=== PATIENT | female | born 1950 | race Caucasian/White ===

== ENCOUNTER 2018-03-14 12:46 | Emergency (ER) | payer MEDICARE ==
[2018-03-14 12:53] VITALS: BP 140/78
--- OUTSIDE RECORDS SUMMARY | 2018-03-14 12:53 | XMS REPORT ---
:1950 External Reference #:[id number] Author Organization [facility] Address [address] [place] [address] [place] [address] Phone [phone] Care Team Providers Name Role Phone Amena Roque MD Care Team Information Publication Designer Unavailable Michael Kebede MD Primary Care Physician Unavailable Payers Type Date Identification Numbers Payment Provider Subscriber Medicare Primary Policy Number: [id number] Medicare Rosi Medina PayID: [id number] [address] [place] [address] [facility] Part B Policy Number: [id number] [facility] Rosi Medina PayID: [id number] [address] [place] [address] Problems Date Description Provider Status Onset: 11/05/2014 Trigeminal neuralgia Sera Hope M.D. Active Note: right: Open surgery Dr. Rothman 10/22/14 Family History Date Family Member(s) Problem(s) Comments General Cancer General Sons with raynaud's General Brain Cancer General Cervical Cancer Father Esophagus Cancer Social History Type Date Description Comments ETOH Use Denies alcohol use Smoking Patient is a former smoker Exercise Type/Frequency Exercises regularly Allergies, Adverse Reactions, Alerts Date Description Reaction Status Severity Comments 05/11/2012 Sulfa hives, disorientation active 05/11/2012 Erythromycin GI disturbance active 05/11/2012 Ibuprofen active Severe Digestive disturbance 05/11/2012 Zithromax rash active 11/05/2014 TeQuin active Medications Medication Date Status Form Strength Qnty SIG Indications Ordering Provider Citalopram / Active Tablets 40mg 30tabs 1 po qd Unknown Hydrobromide 0000 Metoclopramide / Active Tablets 5mg 120tab 2 tabs po Unknown HCL 0000 s q evening Multivitamins 00/ Active Capsules 30caps 1 capsule Unknown 0000 jeromy;y Vitamin D 3 / Active 1,000mg 1 po daily Unknown 0000 [place] 3 / Active 1 po daily Unknown 0000 Atorvastatin / Active Tablets 20mg take 1 Unknown Calcium 0000 tablet at bedtime Melatonin / Active Capsules 3mg 1 tab by Unknown 0000 mouth every night at bedtime Aspirin / Active Tablets 325mg 1 by mouth Unknown 0000 every day Hydrocodone-Acet / Active Tablets 5-325mg 1-2 tabs Unknown aminophen 0000 by mouth every 4- 6 hours as needed pain Nadolol / Active Tablets 20mg Take 1 Unknown 0000 Tablet By Mouth Every Day Citalopram / Active Tablets 40mg Take 1 Unknown Hydrobromide 0000 Tablet By Mouth Every Day Famotidine / Active Tablets 40mg 1 by mouth Unknown 0000 every day Prednisone 06/18/ Hx Tablets 20mg 25tabs 60mg PO Cee 2013 - qam x 3 Gnadt, [employer]NAGER [employer] 11/04/ , then 2014 40mg PO qam x 3 days, then 20mg PO qam x 3 days, then 10mg PO qam x 3 days, then stop. Tegretol-XR 12/20/ Hx Tablets ER 200mg 120tab take 2 by Sera 2012 - HR s mouth Herminia, 11/24/ twice a M.D. 2016 day Tegretol-XR 12/19/ Hx Tablets ER 100mg 240tab take 4 po Sera 2012 - HR s bid Herminia, 12/20/ M.D. 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 2013 day Mysoline / Hx Tablets 50mg 540tab 1/2 to 1 Sera 0000 - s tab qpm Herminia, 10/04/ M.D. 2013 Metoprolol / Hx Tablets 50mg 60tabs 1 po qd Unknown Tartrate 0000 - 2016 Simvastatin 00/00/ Hx Tablets 40mg 90tabs 1 po qhs Unknown 0000 - 2014 Hydrocodone/Acet /00/ Hx Tablets 5-325mg 30tabs 1 to 2 Unknown aminophen - tabs po 11/04/ qhs prn 2014 Benadryl Allergy /00/ Hx Capsules 25mg 30caps 1 po qhs Unknown - 2014 Nexium /00/ Hx Capsules 40mg 30caps 1 po qd Unknown 0000 - DR 2016 Co Q10 00/ Hx Capsules 200mg 30caps 1 po qd Unknown - 2013 Aspirin /00/ Hx Tablets 325mg 1 po qd Unknown - 2014 Topiramate 00/ Hx Tablets 25mg 60tabs 1 by mouth Cee 0000 - twice a Gnadt, MANAGER [employer] in 2016 addition to 100mg tabs Keflex /00/ Hx Capsules 2 days Unknown 0000 - left 2016 Propranolol HCL 00/ Hx Tablets 20mg 1 by mouth Unknown 0000 - twice a 2017 Omeprazole 00/ Hx Capsules 20mg 1 by mouth Unknown 0000 - DR every day 2017 Vital Signs Date Vital Result Comment 02/25/2018 Height 62 inches 5'2" Weight 188.50 lb Heart Rate 57 /min BP Systolic Sitting 110 mmHg BP Diastolic Sitting 68 mmHg Pain Level 8 O2 % BldC Oximetry 96 % BMI (Body Mass Index) 34.5 kg/m2 12/23/2016 Height 62 inches 5'2" Weight 197.00 lb Heart Rate 80 /min BP Systolic Sitting 110 mmHg BP Diastolic Sitting 70 mmHg Respiratory Rate 14 /min Pain Level 7 BMI (Body Mass Index) 36.0 kg/m2 11/24/2016 Height 62 inches 5'2" Weight 201.00 lb Heart Rate 78 /min BP Systolic Sitting 110 mmHg BP Diastolic Sitting 64 mmHg Respiratory Rate 14 /min Pain Level 6 BMI (Body Mass Index) 36.8 kg/m2 11/05/2014 Height 62 inches 5'2" Weight 175.00 lb Heart Rate 72 /min BP Systolic Sitting 114 mmHg BP Diastolic Sitting 70 mmHg Respiratory Rate 16 /min BMI (Body Mass Index) 32.0 kg/m2 04/30/2014 Height 62 inches 5'2" Weight 191.50 lb Heart Rate 72 /min BP Systolic Sitting 110 mmHg BP Diastolic Sitting 76 mmHg Respiratory Rate 16 /min BMI (Body Mass Index) 35.0 kg/m2 04/09/2014 Height 62 inches 5'2" Weight 192.12 lb Heart Rate 70 /min BP Systolic Sitting 102 mmHg BP Diastolic Sitting 70 mmHg Respiratory Rate 16 /min BMI (Body Mass Index) 35.1 kg/m2 10/04/2013 Heart Rate 60 /min BP Systolic Sitting 106 mmHg BP Diastolic Sitting 70 mmHg Respiratory Rate 16 /min 01/04/2013 Heart Rate 60 /min BP Systolic Sitting 114 mmHg BP Diastolic Sitting 68 mmHg Respiratory Rate 12 /min 05/11/2012 Weight 185.00 lb Heart Rate 72 /min BP Systolic 130 mmHg BP Diastolic 78 mmHg Respiratory Rate 14 /min Results Test Date Test Result H/L Range Note Laboratory test finding 11/25/2016 Uric Acid 6.5 mg/dL 2.3-6.6 1 Anca AB Ser If 11/25/2016 C-Anca Negative Negative P-Anca Negative Negative 2 Laboratory test finding 11/25/2016 Creatine Kinase(CK) 51 U/L 10-223 3 Laboratory test finding 11/25/2016 Erythrocyte Sed Rate 13 mm/Hr 0-40 4 C Reactive Protein 5.57 mg/L High < 5.00 5 Connective Tissue Panel 11/25/2016 Anti-Nuclear Antibody 0.3 U 6 Cyclic Citrullinated Peptide <15.6 U 7 Interpretation See Comment 8 Laboratory test finding 11/25/2016 Rheumatoid Factor <15 IU/mL <15 9 Hla B27 11/25/2016 Hla B27 Negative 10 Hla B27 Interp See Comment 11 Laboratory test finding 11/25/2016 TSH (Thyroid Stim 1.38 mcIU/mL 0.34- 5.60 12 Horm) Hepatitis Acute Panel 11/25/2016 Hepatitis B Surface Nonreactive Nonreactive Antigen Hepatitis B Core IgM Nonreactive Nonreactive Hepatitis A AB IgM Nonreactive Nonreactive Hepatitis C Antibody Nonreactive Nonreactive Laboratory test finding 11/25/2016 Vitamin D, 1,25 Dihydroxy 67 pg/mL 18- 78 13 Angiotensin Converting Enzyme 22 U/L 8 - 53 14 CBC Auto Diff 11/25/2016 White Blood Count 5.6 10^3/uL 3.5-10.8 Red Blood Count 4.68 10^6/uL 4.0-5.4 Hemoglobin 14.0 g/dL 12.0-16.0 Hematocrit 42 % 35-47 Mean Corpuscular Volume 90 fL 80-97 Mean Corpuscular Hemoglobin 30 pg 27-31 Mean Corpuscular HGB Conc 33 g/dL 31-36 Red Cell Distribution Width 14 % 10.5-15 Platelet Count 216 10^3/uL 150-450 Mean Platelet Volume 9 um3 7.4-10.4 Abs Neutrophils 2.7 10^3/uL 1.5-7.7 Abs Lymphocytes 1.9 10^3/uL 1.0-4.8 Abs Monocytes 0.7 10^3/uL 0-0.8 Abs Eosinophils 0.3 10^3/uL 0-0.6 Abs Basophils 0 10^3/uL 0-0.2 Abs Nucleated RBC 0 10^3/uL Granulocyte % 48.8 % 38-83 Lymphocyte % 34.3 % 25-47 Monocyte % 11.7 % High 1-9 Eosinophil % 4.5 % 0-6 Basophil % 0.7 % 0-2 Nucleated Red Blood Cells % 0.1 Comp Metabolic Panel 11/25/2016 Sodium 137 mmol/L 133-145 Potassium 4.5 mmol/L 3.5-5.0 Chloride 106 mmol/L 101-111 Co2 Carbon Dioxide 28 mmol/L 22-32 Anion Gap 3 mmol/L 2-11 Glucose 124 mg/dL High 70-100 Blood Urea Nitrogen 13 mg/dL 6-24 Creatinine 0.75 mg/dL 0.51-0.95 BUN/Creatinine Ratio 17.3 8-20 Calcium 9.1 mg/dL 8.6-10.3 Total Protein 6.1 g/dL Low 6.4-8.9 Albumin 3.6 g/dL 3.2-5.2 Globulin 2.5 g/dL 2-4 Albumin/Globulin Ratio 1.4 1-3 Total Bilirubin 0.40 mg/dL 0.2-1.0 Alkaline Phosphatase 50 U/L 34-104 Alt 33 U/L 7-52 Ast 32 U/L 13-39 Egfr Non- 77.1 >60 Egfr 99.1 >60 15 Laboratory test finding 04/25/2014 Carbamazepine 9.5 g/mL 4.0-12.0 Comp Metabolic Panel 04/25/2014 Sodium 138 mmol/L 133-145 Potassium 4.0 mmol/L 3.7-5.6 Chloride 108 mmol/L 101-111 Co2 Carbon Dioxide 25 mmol/L 22-32 Anion Gap 5 mmol/L 2-11 Glucose 101 mg/dL High 70-100 Blood Urea Nitrogen 14 mg/dL 6-24 Creatinine 0.77 mg/dL 0.51-0.95 BUN/Creatinine Ratio 18.2 8-20 Calcium 8.9 mg/dL 8.6-10.3 Total Protein 6.4 g/dL 6.4-8.9 Albumin 4.0 g/dL 3.2-5.2 Globulin 2.4 g/dL 2-4 Albumin/Globulin Ratio 1.7 1-3 Total Bilirubin 0.30 mg/dL 0.2-1.0 Alkaline Phosphatase 56 U/L 34-104 Alt 16 U/L 7-52 Ast 16 U/L 13-39 Egfr Non- 75.5 >60 Egfr 97.1 >60 16 CBC Auto Diff 04/10/2014 White Blood Count 6.0 10^3/uL 4.8-10.8 17 Red Blood Count 4.49 10^6/uL 4.0-5.4 17 Hemoglobin 14.5 g/dL 12.0-16.0 17 Hematocrit 42 % 35-47 17 Mean Corpuscular Volume 94 fL 80-97 17 Mean Corpuscular Hemoglobin 32 pg High 27-31 17 Mean Corpuscular HGB Conc 34 g/dL 31-36 17 Red Cell Distribution Width 13 % 10.5-15 17 Platelet Count 258 10^3/uL 150-450 17 Mean Platelet Volume 8 um3 7.4-10.4 17 Abs Neutrophils 3.5 10^3/uL 1.5-7.7 17 Abs Lymphocytes 1.8 10^3/uL 1.0-4.8 17 Abs Monocytes 0.4 10^3/uL 0-0.8 17 Abs Eosinophils 0.3 10^3/uL 0-0.6 17 Abs Basophils 0 10^3/uL 0-0.2 17 Abs Nucleated RBC 0 10^3/uL 17 Granulocyte % 58.6 % 38-83 17 Lymphocyte % 29.2 % 25-47 17 Monocyte % 6.3 % 1-9 17 Eosinophil % 5.4 % 0-6 17 Basophil % 0.5 % 0-2 17 Nucleated Red Blood Cells % 0 17 CBC Auto Diff 10/05/2013 White Blood Count 5.8 10^3/uL 4.8-10.8 Red Blood Count 4.58 10^6/uL 4.0-5.4 Hemoglobin 14.4 g/dL 12.0-16.0 Hematocrit 42 % 35-47 Mean Corpuscular Volume 92 fL 80-97 Mean Corpuscular Hemoglobin 31 pg 27-31 Mean Corpuscular HGB Conc 34 g/dL 31-36 Red Cell Distribution Width 13 % 10.5-15 Platelet Count 224 10^3/uL 150-450 Mean Platelet Volume 8 um3 7.4-10.4 Abs Neutrophils 3.4 10^3/uL 1.5-7.7 Abs Lymphocytes 1.6 10^3/uL 1.0-4.8 Abs Monocytes 0.5 10^3/uL 0-0.8 Abs Eosinophils 0.3 10^3/uL 0-0.6 Abs Basophils 0 10^3/uL 0-0.2 Abs Nucleated RBC 0 10^3/uL Granulocyte % 57.9 % 38-83 Lymphocyte % 28.1 % 25-47 Monocyte % 8.1 % 1-9 Eosinophil % 5.3 % 0-6 Basophil % 0.6 % 0-2 Nucleated Red Blood Cells % 0.1 Laboratory test finding 10/05/2013 Carbamazepine 9.3 g/mL 4.0-12.0 Comp Metabolic Panel 10/05/2013 Sodium 137 mmol/L 133-145 Potassium 4.3 mmol/L 3.7-5.6 Chloride 107 mmol/L 101-111 Co2 Carbon Dioxide 24 mmol/L 22-32 Anion Gap 6 mmol/L 2-11 Glucose 100 mg/dL 70-100 Blood Urea Nitrogen 11 mg/dL 6-24 Creatinine 0.68 mg/dL 0.51-0.95 BUN/Creatinine Ratio 16.2 8-20 Calcium 9.0 mg/dL 8.6-10.3 Total Protein 6.3 g/dL Low 6.4-8.9 Albumin 4.1 g/dL 3.2-5.2 Globulin 2.2 g/dL 2-4 Albumin/Globulin Ratio 1.9 1-3 Total Bilirubin 0.30 mg/dL 0.2-1.0 Alkaline Phosphatase 59 U/L 34-104 Alt 16 U/L 7-52 Ast 16 U/L 13-39 Egfr Non- 87.1 >60 Egfr 112.0 >60 18 Creatinine 03/01/2013 Creatinine 0.80 mg/dL 0.50-1.40 Egfr Non- 72.4 >60 Egfr 93.2 >60 19 CBC Auto Diff 12/31/2012 White Blood Count 6.5 10^3/uL 4.8-10.8 Red Blood Count 4.42 10^6/uL 4.0-5.4 Hemoglobin 13.8 g/dL 12.0-16.0 Hematocrit 42 % 35-47 Mean Corpuscular Volume 95 fL 80-97 Mean Corpuscular Hemoglobin 31 pg 27-31 Mean Corpuscular HGB Conc 33 g/dL 31-36 Red Cell Distribution Width 13 % 10.5-15 Platelet Count 235 10^3/uL 150-450 Mean Platelet Volume 8 um3 7.4-10.4 Abs Neutrophils 4.0 10^3/uL 1.5-7.7 Abs Lymphocytes 1.6 10^3/uL 1.0-4.8 Abs Monocytes 0.5 10^3/uL 0-0.8 Abs Eosinophils 0.4 10^3/uL 0-0.6 Abs Basophils 0 10^3/uL 0-0.2 Abs Nucleated RBC 0 10^3/uL Granulocyte % 61.3 % 38-83 Lymphocyte % 24.7 % Low 25-47 Monocyte % 7.8 % 1-9 Eosinophil % 5.8 % 0-6 Basophil % 0.4 % 0-2 Nucleated Red Blood Cells % 0 Liver Function Panel 12/31/2012 Total Protein 6.5 g/dL 6.2-8.1 Albumin 3.6 g/dL 3.2-5.2 Globulin 2.9 g/dL 2-4 Albumin/Globulin Ratio 1.2 1-3 Total Bilirubin 0.6 mg/dL 0.4-1.5 Direct Bilirubin 0 mg/dL Low 0.1-0.5 Indirect Bilirubin (SEE NOTE) mg/dL 0.3-1.0 20 Alkaline Phosphatase 63 U/L 30-110 Alt 20 U/L 14-54 Ast 21 U/L 12-42 Laboratory test finding 12/31/2012 Carbamazepine 8.1 g/mL 4.0-12.0 1 Please check labs today 2 Negative for cANCA and pANCA patterns by immunofluorescence. ADDITIONAL INFORMATION This test was developed and its performance characteristics determined by [facility] in a manner consistent with CLIA requirements. This test has not been cleared or approved by the U.S. Food and Drug Administration. Test Performed by: [facility] - [address] [address] 3 Please check labs today 4 Please check labs today 5 Acute inflammation: >10.00 6 REFERENCE VALUE <=1.0 (Negative) 7 REFERENCE VALUE <20.0 (Negative) 8 Tests for antibodies to dsDNA and YUNIEL antigens are not performed automatically unless the SHARON result is > or= 3.0 U. Studies performed at [facility] indicate that positive SHARON results <3.0 U are rarely accompanied by positive second order tests. Test Performed by: [facility] [place] [address] 9 Test Performed by: [facility] - [address] [address] 10 REFERENCE VALUE Not Applicable 11 RESULT: HLA-B27 antigen was not detected. ADDITIONAL INFORMATION Method: Flow Cytometry Performing Laboratory CLIA# [id number] Test Performed by: [facility] - [place] [id number] Please check labs today 13 ADDITIONAL INFORMATION This test was developed and its performance characteristics determined by [facility] in a manner consistent with CLIA requirements. This test has not been cleared or approved by the U.S. Food and Drug Administration. Test Performed by: [facility] - [facility] [address] [place] [address] 14 Test Performed by: [facility] - [facility] [address] [place] [address] 15 Because ethnic data is not always readily available, this report includes an eGFR for both -Americans and non- Americans. The National Kidney Disease Education Program (NKDEP) does not endorse the use of the MDRD equation for patients that are not between the ages of 18 and 70, are , have extremes of body size, muscle mass, or nutritional status, or are non- or non-. According to the National Kidney Foundation, irrespective of diagnosis, the stage of the disease is based on the level of kidney function: Stage Description GFR(mL/min/1.73 m(2)) 1 Kidney damage with normal or decreased GFR 90 2 Kidney damage with mild decrease in GFR 60-89 3 Moderate decrease in GFR 30-59 4 Severe decrease in GFR 15-29 5 Kidney failure <15 (or dialysis) 16 Because ethnic data is not always readily available, this report includes an eGFR for both -Americans and non- Americans. The National Kidney Disease Education Program (NKDEP) does not endorse the use of the MDRD equation for patients that are not between the ages of 18 and 70, are , have extremes of body size, muscle mass, or nutritional status, or are non- or non-. According to the National Kidney Foundation, irrespective of diagnosis, the stage of the disease is based on the level of kidney function: Stage Description GFR(mL/min/1.73 m(2)) 1 Kidney damage with normal or decreased GFR 90 2 Kidney damage with mild decrease in GFR 60-89 3 Moderate decrease in GFR 30-59 4 Severe decrease in GFR 15-29 5 Kidney failure <15 (or dialysis) 17 Draw in am prior to first dose tegretol 18 Because ethnic data is not always readily available, this report includes an eGFR for both -Americans and non- Americans. The National Kidney Disease Education Program (NKDEP) does not endorse the use of the MDRD equation for patients that are not between the ages of 18 and 70, are , have extremes of body size, muscle mass, or nutritional status, or are non- or non-. According to the National Kidney Foundation, irrespective of diagnosis, the stage of the disease is based on the level of kidney function: Stage Description GFR(mL/min/1.73 m(2)) 1 Kidney damage with normal or decreased GFR 90 2 Kidney damage with mild decrease in GFR 60-89 3 Moderate decrease in GFR 30-59 4 Severe decrease in GFR 15-29 5 Kidney failure <15 (or dialysis) 19 Because ethnic data is not always readily available, this report includes an eGFR for both -Americans and non- Americans. The National Kidney Disease Education Program (NKDEP) does not endorse the use of the MDRD equation for patients that are not between the ages of 18 and 70, are , have extremes of body size, muscle mass, or nutritional status, or are non- or non-. According to the National Kidney Foundation, irrespective of diagnosis, the stage of the disease is based on the level of kidney function: Stage Description GFR(mL/min/1.73 m(2)) 1 Kidney damage with normal or decreased GFR 90 2 Kidney damage with mild decrease in GFR 60-89 3 Moderate decrease in GFR 30-59 4 Severe decrease in GFR 15-29 5 Kidney failure <15 (or dialysis) 20 Unable to calculate Ind Bili as D Bili is <0.1 Procedures Date CPT Code Description Status 10/24/2012 27150 Rad Exam; Hand Comp Completed Encounters Type Date Location Provider CPT E/M Dx Office Visit 02/25/2018 [facility] Aydin Gray M.D. 75972 L40.50 9:20a Of [facility] Z79.899 L40.9 M54.5 E55.9 Office Visit 12/23/2016 3:40p [facility] A[facility] 62966 M54.5 Tamiko Bowden M54.6 M54.2 L40.9 Office Visit 11/24/2016 10:00a [facility] 03078 M06.4 Tamiko Bowden M79.1 E55.9 Z79.899 R53.83 M54.5 M54.6 M54.2 L40.9 Office Visit 11/05/2014 11:00a [facility] Sera Hope M.D. 13873 350.1 Services [facility] 333.1 V58.69 784.0 Office Visit 04/30/2014 10:00a [facility] Sera Hope M.D. 71505 350.1 [facility] 333.1 Office Visit 04/09/2014 11:45a [facility] Sera Hope M.D. 24606 350.1 [facility] 333.1 Office Visit 10/04/2013 11:00a [facility] Sera Hope M.D. 99411 350.1 Services [facility] 333.1 Office Visit 04/05/2013 1:00p [facility] Sera Hope M.D. 14109 350.1 Services [facility] 333.1 Office Visit 01/04/2013 8:00a [facility] Sera Hope 08756 350.1 Services Of [facility] MMadeleine Office Visit 10/24/2012 11:00a [facility] [place] 77111 727.43 Carson Lawson M.D. Office Visit 10/01/2012 9:44a [facility] [place] Daniel, [address] 786.51 Hospitalists [place] 272.2 272.1 350.1 Office Visit 05/11/2012 11:30a [facility] Sera Hope M.D. 04992 350.1 Services Of [facility] 333.1 Plan of Care Future Appointment(s):04/05/2018 9:40 am - Aydin Gray M.D. at [facility]02/25/2018 - Aydin Gray M.D.L40.50 Arthropathic psoriasis, [id number] Other mcfp (current) drug therapyNew Xrays:Chest PA &amp ; Lat 2 VWSL40.9 Psoriasis, unspecifiedFollow up:Follow up in 5 weeks or sooner if omqwntS63.5 Low back painNew Xrays:SP Lumbarsacral 4+ VWSE55.9 Vitamin D deficiency, unspecified
--- NOTE | 2018-03-14 13:59 | UC ---
Ear Complaint HPI - HPI Summary HPI Summary: 67 y/o female presents to the urgent care c/o c/o right ear pain for a few weeks, worse since last night. - History of Current Complaint Chief Complaint: UCEar Stated Complaint: R EAR PAIN Time Seen by Provider: 03/14/18 13:52 Hx Obtained From: Patient Pain Intensity: 6 - Allergies/Home Medications Allergies/Adverse Reactions: Allergies Allergy/AdvReac Type Severity Reaction Status Date / Time azithromycin Allergy Hives Verified 03/14/18 12:57 erythromycin base Allergy GI Upset Verified 03/14/18 12:57 gatifloxacin [From Tequin] Allergy Hives Verified 03/14/18 12:57 Sulfa (Sulfonamide Allergy Hives Verified 03/14/18 12:57 Antibiotics) PMH/Surg Hx/FS Hx/Imm Hx - Surgical History Surgical History: Yes Surgery Procedure, Year, and Place: tonsilLECTOMY. tubal LIGATION. 1993. 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 COLONOSCOPY - Family History Known Family History: Positive: Other - alcoholism/ subtance abuse - Social History Alcohol Use: None Substance Use Type: None Smoking Status (MU): Former Smoker Type: Cigarettes Amount Used/How Often: A FEW-2 PPD PPD X 24 YEARS When Did the Patient Quit Smoking/Using Tobacco: 30 YEARS AGO Physical Exam Vital Signs: Initial Vital Signs Temp 98.8 F 03/14/18 12:50 Pulse 71 03/14/18 12:50 Resp 18 03/14/18 12:50 BP 140/78 03/14/18 12:50 Pulse Ox 95 03/14/18 12:50 Ear Complaint Course/Dx - Differential Dx/Diagnosis Differential Diagnosis/HQI/PQRI: Cerumen Impaction, Otitis Externa, Otitis Media , Perforated TM, URI Provider Diagnoses: 1- Rt otitis externa. 2- Otalgia. 3- Uncontrolled HTN Discharge - Discharge Plan Condition: Stable Disposition: HOME Prescriptions: Neomyc/Polym/HC 1% OTIC SUSP* [Cortisporin Otic Susp 1%*] 4 drop RIGHT EAR QID # 1 btl Patient Education Materials: Otitis Externa (DC), Low-Sodium Diet (ED) Referrals: Michael Kebede MD [Primary Care Provider] - 3 Days Additional Instructions: 1-Please apply otic antibiotic on your Rt ear as directed. 2-continue taking Hydrocodone or Tylenol PO q6-8hrs for pain. 3-If symptoms do not improve or worsen please f/u with your PCP in 3 days or return to the urgent care for further evaluation and treatment. 4-Your BP is elevated today. please decrease salt in your diet, monitor BP and if it continues to be elevated please f/u with your PCP for further management - Billing Disposition and Condition Condition: STABLE Disposition: Home
--- NOTE | 2018-03-15 14:35 | UC ---
Discharge - Sign-Out/Discharge Documenting (check all that apply): Post-Discharge Follow Up All imaging exams completed and their final reports reviewed: No Studies - Discharge Plan Condition: Stable Disposition: HOME Prescriptions: Neomyc/Polym/HC 1% OTIC SUSP* [Cortisporin Otic Susp 1%*] 4 drop RIGHT EAR QID # 1 btl Patient Education Materials: Otitis Externa (DC), Low-Sodium Diet (ED) Referrals: Michael Kebede MD [Primary Care Provider] - 3 Days Additional Instructions: 1-Please apply otic antibiotic on your Rt ear as directed. 2-continue taking Hydrocodone or Tylenol PO q6-8hrs for pain. 3-If symptoms do not improve or worsen please f/u with your PCP in 3 days or return to the urgent care for further evaluation and treatment. 4-Your BP is elevated today. please decrease salt in your diet, monitor BP and if it continues to be elevated please f/u with your PCP for further management - Billing Disposition and Condition Condition: STABLE Disposition: Home
== END 2018-03-14 14:28 | disposition home or self-care (01) ==
LOC: UCEAST 12:46
DX: H60.91 Unspecified otitis externa, right ear (principal); H92.01 Otalgia, right ear; I10 Essential (primary) hypertension; Z88.1 Allergy status to other antibiotic agents; Z88.2 Allergy status to sulfonamides; Z87.891 Personal history of nicotine dependence
CPT/HCPCS: 99212; G0463

== ENCOUNTER 2018-05-23 05:36 | Day surgery (SDC) | payer MEDICARE ==
[2018-05-23] MEDS ORDERED: Buffered Lidocaine 0.9% SYRIN* 5 ML/SYR SYRINGE INTRADERM ONE (06:00)
[2018-05-23] MEDS ORDERED: ceFAZolin 2 GM PREMIX in ORs 2 GM/50 ML BAG IVPB ONE (06:13)
[2018-05-23] MEDS ORDERED: Naloxone* 0.4 MG/ML 1 ML VIAL IV PRN (07:27)
[2018-05-23] MEDS ORDERED: fentaNYL* 50 MCG/ML 2 ML VIAL (100 MCG VIAL) ONE (07:32)
[2018-05-23] MEDS ORDERED: Midazolam* 1 MG/ML 2 ML VIAL (2 MG) ONE ×2 (07:32→07:42)
--- NOTE | 2018-05-23 08:21 | BRIEFOPN ---
Brief Operative Note - Surgery Procedures: Procedures OPERATIVE REPORT PRE-OP: Lipoma right mons pubis POST-OP:4 cm lipoma right mons pubis PROCEDURE:Excision of lipoma right mons pubis SURGEON: MD Nia ANESTHESIA:Local with MAC Dr. Das ASST:none IVF:min EBL:min SPECIMEN:Lipoma DRAIN: none WOUND CLASS:One COMPLICATIONS: none TO PACU
[2018-05-23] MEDS ORDERED: Lidocaine 1% INJ* 10 MG/ML 30 ML SDV ONE (08:22)
[2018-05-23] MEDS ORDERED: Bupivacaine 0.5% SDV PF* 30ML VIAL ONE (08:22)
[2018-05-23 09:03] VITALS: BP 111/68
--- NOTE | 2018-05-24 05:20 | OP ---
DATE OF OPERATION: 05/23/18 - [facility] DATE OF : 48 SURGEON: Brayan Kramer MD. GROUP WORKER: None. ANESTHESIOLOGIST: Dr. Das. ANESTHESIA: Local with monitored anesthesia care. PRE-OP DIAGNOSIS: Subcutaneous mass right mons pubis. POST-OP DIAGNOSIS: Lipoma, right mons pubis. OPERATIVE PROCEDURE: Excision of lipoma in the right side of the mons pubis. ESTIMATED BLOOD LOSS: Minimal. SPECIMEN: Apparent lipoma. WOUND CLASSIFICATION: 1. DRAINS: None. COMPLICATIONS: Nil. DESCRIPTION OF PROCEDURE: Written informed consent was obtained, and the site was marked with indelible ink. The patient was taken to the operating room and placed in a supine position. Sequential compression devices and a warming blanket were applied. Anesthesia was administered and the right groin and upper portion of the external genitalia was prepped and draped in usual sterile fashion. A time-out verification was completed. A 0.25% Marcaine mixed with 1% lidocaine was then infiltrated and an oblique incision was made over the palpable subcutaneous mass. I then proceeded to excise what appeared to be approximately a 4 cm lipoma from the surrounding tissue and was completely removed. Specimen was sent for pathology. Hemostasis was assured. The wound was closed with several interrupted 3-0 Vicryl subcutaneous sutures. The skin was approximated with subcuticular 4-0 Vicryl suture. Steri-Strips and a sterile dressing were applied. The patient tolerated the procedure well and was taken to the recovery room in stable condition. [id number]/CPS #: [id number] [facility]
== END 2018-05-23 09:05 | disposition home or self-care (01) ==
LOC: OR 05:36
PROVIDERS: ATTEND Surgery
DX: D17.1 Benign lipomatous neoplasm of skin and subcutaneous tissue of trunk (principal); Z68.32 Body mass index [BMI] 32.0-32.9, adult; K21.9 Gastro-esophageal reflux disease without esophagitis; L40.50 Arthropathic psoriasis, unspecified; F41.9 Anxiety disorder, unspecified
CPT/HCPCS: 88304; J0690; J2250; J3010

== ENCOUNTER 2020-05-30 16:55 | Inpatient (IN) ==
[2020-05-30 18:30] LABS: ABS Eosinophils 0.1 10^3/ul (0-0.6); ABS Lymphocytes 1.9 10^3/ul (1.0-4.8); ABS Monocytes 0.6 10^3/ul (0-0.8); Eosinophil % 1.8 %; Hematocrit 44 % (35-47); Lymphocyte % 24.7 %; Mean Corpuscular HGB Conc 34 g/dL (31-36); Mean Corpuscular Hemoglobin 31 pg (27-31); Mean Corpuscular Volume 91 fL (80-97); Mean Platelet Volume 7.8 fL (7.4-10.4); Platelet Count 265 10^3/uL (150-450); Red Cell Distribution Width 13 % (10-15); White Blood Count 7.7 10^3/uL (3.5-10.8)
[2020-05-30 18:46] LABS: ALT 16 U/L (7-52); AST 20 U/L (13-39); Albumin 4.2 g/dL (3.2-5.2); Albumin/Globulin Ratio 1.6 (1-3); Alkaline Phosphatase 48 U/L (34-104); Anion Gap 9 mmol/L (2-11); BUN/Creatinine Ratio 16.7 (8-20); Blood Urea Nitrogen 12 mg/dL (6-24); C Reactive Protein 4.13 mg/L (<8.01); CO2 Carbon Dioxide 27 mmol/L (22-32); Calcium 9.7 mg/dL (8.6-10.3); Chloride 99 mmol/L (101-111); EGFR African American 96.9 (>60); EGFR Non-African American 80.1 (>60); Globulin 2.6 g/dL (2-4); Glucose 96 mg/dL (70-100); Potassium 4.3 mmol/L (3.5-5.0); Sodium 135 mmol/L (135-145); Total Protein 6.8 g/dL (6.4-8.9)
[2020-05-30 19:04] LABS: Troponin I 0.05 ng/mL (<0.03)
[2020-05-30] MEDS ORDERED: methylPREDNISolone 125 mg 2 ML VIAL IV ONE (19:31)
[2020-05-30] MEDS ORDERED: methylPREDNISolone 125 mg 2 ML VIAL ONE (20:15)
[2020-05-30] MEDS ORDERED: NS 0.9% 1000 ml BAG 1,000 ML IV.FLUID IV ONE (20:24)
[2020-05-30 21:06] LABS: Troponin I 0.06 ng/mL (<0.03)
[2020-05-30] MEDS ORDERED: NS 0.9% 1000 ml BAG 1,000 ML IV SCH (21:30)
[2020-05-30] MEDS ORDERED: NS 0.9% 1000 ml BAG 1,000 ML IV ONE (21:37)
[2020-05-30] MEDS ORDERED: Enoxaparin 40 MG/0.4 ML SYR SUBCUT SCH (22:00)
[2020-05-30] MEDS ORDERED: Albuterol 2.5mg/3 ml (0.083%) NEB.SOLN INH PRN (22:11)
[2020-05-30 23:14] LABS: Urine Appearance Clear; Urine Bilirubin Negative (Negative); Urine Blood Negative (Negative); Urine Color Yellow; Urine Glucose Negative (Negative); Urine Ketones 1+ (Negative); Urine Nitrite Negative (Negative); Urine Protein Negative (Negative); Urine Specific Gravity 1.011 (1.010-1.030); Urine Urobilinogen Negative (Negative)
[2020-05-30 23:26] LABS: Urine Bacteria Absent (Absent); Urine Red Blood Cell 2+(6-10/hpf) (Absent); Urine Squamous Epithelial Cell Present (Absent); Urine White Blood Cell 1+(6-10/hpf) (Absent)
[2020-05-30 23:31] LABS: Cholesterol 238 mg/dL; HDL Cholesterol 41.2 mg/dL; LDL Cholesterol 122 mg/dL; Triglycerides 372 mg/dL
[2020-05-31] MEDS: HYDROcodone/ACETAMIN 5/325 mg TAB PO PRN ×2 (01:33→20:03)
[2020-05-31] MEDS: Metoprolol Tartrate 5 mg VIAL 5 ml VIAL (1 mg/ml) IV SCH ×5 (01:54→22:23)
[2020-05-31 02:31] LABS: Troponin I 0.04 ng/mL (<0.03)
[2020-05-31] MEDS: Lidocaine 5% OINT TUBE TOPICAL PRN ×2 (04:13→22:24)
[2020-05-31 07:17] LABS: BUN/Creatinine Ratio 18.8 (8-20); Calcium 8.7 mg/dL (8.6-10.3); Carbamazepine 8.5 mcg/mL (4.0-12.0); EGFR African American 101.8 (>60); EGFR Non-African American 84.1 (>60); Potassium 4.4 mmol/L (3.5-5.0)
[2020-05-31 08:51] LABS: ABS Monocytes 0.3 10^3/ul (0-0.8); ABS Neutrophils 6.2 10^3/ul (1.5-7.7); Hematocrit 40 % (35-47); Hemoglobin 13.8 g/dL (12.0-16.0); Lymphocyte % 13.7 %; Mean Corpuscular HGB Conc 34 g/dL (31-36); Mean Corpuscular Hemoglobin 31 pg (27-31); Mean Corpuscular Volume 91 fL (80-97); Mean Platelet Volume 8.1 fL (7.4-10.4); Platelet Count 264 10^3/uL (150-450); Red Blood Count 4.38 10^6 /uL (3.70-4.87); Red Cell Distribution Width 13 % (10-15); White Blood Count 7.5 10^3/uL (3.5-10.8)
[2020-05-31] MEDS ORDERED: methylPREDNISolone 125 mg 250 MG in NS 0.9% 100 ml BAG 100 ML IV ONE (08:56)
[2020-05-31] MEDS ORDERED: carBAMazepine 100mg CHEWTAB PO SCH (09:00)
[2020-05-31] MEDS: HYDROmorphone 0.5 MG/0.5 ML SYRINGE IV PRN ×2 (11:07→13:25)
[2020-05-31] MEDS: carBAMazepine 100mg CHEWTAB PO SCH ×3 (11:13→22:58)
[2020-05-31] MEDS: Lactated Ringers 1000 ml BAG 1,000 ML IV SCH (11:55)
[2020-05-31] MEDS ORDERED: HYDROmorphone 1 MG/1 ML SYRINGE IV PRN ×3 (13:27→16:13)
[2020-05-31] MEDS ORDERED: HYDROmorphone 0.5 MG/0.5 ML SYRINGE IV ONE (14:00)
[2020-05-31] MEDS ORDERED: Polyethylene Glycol 3350 17 GM PACKET PO PRN (16:09)
[2020-05-31] MEDS ORDERED: Naloxone 0.4 mg VIAL 0.4 mg/ml 1 ml VIAL IV PUSH PRN (16:38)
[2020-05-31] MEDS ORDERED: HYDROmorphone PCA 20 MG/20 ML PCA.SYRING PCA SCH (17:00)
[2020-05-31] MEDS: Senna TAB 8.6 mg TAB PO SCH (20:02)
[2020-06-01] MEDS: HYDROcodone/ACETAMIN 5/325 mg TAB PO PRN ×3 (00:33→21:43)
[2020-06-01] MEDS: Metoprolol Tartrate 5 mg VIAL 5 ml VIAL (1 mg/ml) IV SCH ×4 (03:14→20:45)
[2020-06-01] MEDS: Lactated Ringers 1000 ml BAG 1,000 ML IV SCH ×2 (03:20→17:40)
[2020-06-01] MEDS: Enoxaparin 40 MG/0.4 ML SYR SUBCUT SCH (06:31)
[2020-06-01] MEDS: carBAMazepine 100mg CHEWTAB PO SCH ×2 (11:41→20:38)
[2020-06-01] MEDS ORDERED: HYDROmorphone 1 MG/1 ML SYRINGE IV ONE (12:52)
[2020-06-01] MEDS: oxyCODONE SR 10 mg TAB PO SCH ×2 (13:50→20:38)
[2020-06-01] MEDS: Senna TAB 8.6 mg TAB PO SCH (20:38)
[2020-06-02] MEDS: Enoxaparin 40 MG/0.4 ML SYR SUBCUT SCH (04:24)
[2020-06-02] MEDS: Metoprolol Tartrate 5 mg VIAL 5 ml VIAL (1 mg/ml) IV SCH ×4 (04:24→21:00)
[2020-06-02] MEDS: carBAMazepine 100mg CHEWTAB PO SCH ×3 (08:26→19:34)
[2020-06-02] MEDS ORDERED: oxyCODONE SR 20 mg TAB PO SCH (09:00)
[2020-06-02] MEDS ORDERED: Calcium Carb (TUMS) 500 mg CHEW TAB PO PRN (11:37)
[2020-06-02] MEDS: HYDROmorphone PCA 20 MG/20 ML PCA.SYRING PCA SCH ×2 (11:57→13:28)
[2020-06-02] MEDS: Lactated Ringers 1000 ml BAG 1,000 ML IV SCH (13:41)
[2020-06-02] MEDS: oxyCODONE SR 15 mg TAB PO SCH (19:34)
[2020-06-02] MEDS: Senna TAB 8.6 mg TAB PO SCH (19:34)
[2020-06-03] MEDS: Metoprolol Tartrate 5 mg VIAL 5 ml VIAL (1 mg/ml) IV SCH ×4 (04:34→21:20)
[2020-06-03] MEDS: Enoxaparin 40 MG/0.4 ML SYR SUBCUT SCH (04:34)
[2020-06-03] MEDS: carBAMazepine 100mg CHEWTAB PO SCH ×2 (08:58→21:17)
[2020-06-03] MEDS: oxyCODONE SR 15 mg TAB PO SCH ×2 (08:58→21:16)
[2020-06-03] MEDS: Lidocaine 5% OINT TUBE TOPICAL PRN (09:01)
[2020-06-03] MEDS ORDERED: HYDROmorphone PCA 20 MG/20 ML PCA.SYRING PCA SCH (14:05)
[2020-06-03] MEDS ORDERED: NS 0.45% 1000 ml BAG 1,000 ML IV SCH (18:00)
[2020-06-03] MEDS: Senna TAB 8.6 mg TAB PO SCH (21:17)
[2020-06-04] MEDS: Enoxaparin 40 MG/0.4 ML SYR SUBCUT SCH (06:09)
[2020-06-04] MEDS: carBAMazepine 100mg CHEWTAB PO SCH ×2 (10:02→19:54)
[2020-06-04] MEDS: oxyCODONE SR 15 mg TAB PO SCH ×2 (10:03→19:54)
[2020-06-04] MEDS: Pantoprazole VIAL 40 MG VIAL IV SCH (18:09)
[2020-06-04] MEDS: Senna TAB 8.6 mg TAB PO SCH (19:52)
[2020-06-05] MEDS ORDERED: Morphine 2 MG/ML SYRINGE IV PRN (04:00)
[2020-06-05] MEDS: Enoxaparin 40 MG/0.4 ML SYR SUBCUT SCH (05:59)
[2020-06-05] MEDS: oxyCODONE SR 15 mg TAB PO SCH ×2 (08:22→21:41)
[2020-06-05] MEDS: carBAMazepine 100mg CHEWTAB PO SCH ×2 (08:45→21:41)
[2020-06-05] MEDS ORDERED: Magnesium Hydroxide LIQ 30 ML UDC PO ONE (11:14)
[2020-06-05] MEDS: Polyethylene Glycol 3350 17 GM PACKET PO SCH (12:37)
[2020-06-05] MEDS: Lidocaine 5% OINT TUBE TOPICAL PRN (12:41)
[2020-06-05] MEDS: Pantoprazole VIAL 40 MG VIAL IV SCH (17:56)
[2020-06-05] MEDS: Senna TAB 8.6 mg TAB PO SCH (21:41)
[2020-06-06] MEDS: Enoxaparin 40 MG/0.4 ML SYR SUBCUT SCH (05:04)
[2020-06-06] MEDS: oxyCODONE SR 15 mg TAB PO SCH ×2 (08:58→21:12)
[2020-06-06] MEDS: carBAMazepine 100mg CHEWTAB PO SCH ×2 (09:04→21:11)
[2020-06-06] MEDS: Polyethylene Glycol 3350 17 GM PACKET PO SCH (09:09)
[2020-06-06] MEDS: Pantoprazole VIAL 40 MG VIAL IV SCH (17:46)
[2020-06-06] MEDS: Senna TAB 8.6 mg TAB PO SCH (21:09)
[2020-06-07] MEDS: Enoxaparin 40 MG/0.4 ML SYR SUBCUT SCH (06:29)
[2020-06-07] MEDS: carBAMazepine 100mg CHEWTAB PO SCH ×2 (07:55→20:19)
[2020-06-07] MEDS: Polyethylene Glycol 3350 17 GM PACKET PO SCH (07:55)
[2020-06-07] MEDS: oxyCODONE SR 15 mg TAB PO SCH ×2 (07:57→20:22)
[2020-06-07] MEDS: Pantoprazole VIAL 40 MG VIAL IV SCH (18:13)
[2020-06-07] MEDS: Senna TAB 8.6 mg TAB PO SCH (20:24)
[2020-06-08] MEDS: Enoxaparin 40 MG/0.4 ML SYR SUBCUT SCH (05:30)
[2020-06-08] MEDS: carBAMazepine 100mg CHEWTAB PO SCH (08:30)
[2020-06-08] MEDS: Polyethylene Glycol 3350 17 GM PACKET PO SCH (08:48)
[2020-06-08] MEDS: oxyCODONE SR 15 mg TAB PO SCH (08:48)
[2020-06-08 08:49] VITALS: BP 124/58
== END 2020-06-08 11:50 | disposition home health service (06) | DRG 74 ==
LOC: MEDTELE 16:55 → ED 16:55 → MEDTELE 05-31 00:37
PROVIDERS: ADMIT Hospitalist; ATTEND Internal Medicine